=== PATIENT | male | born 1950 | race Caucasian/White ===

== ENCOUNTER 2020-02-20 05:48 | Inpatient (IN) | payer MEDICARE, OTHER ==
[2020-02-16 12:46] LABS: BASOPHILS % (AUTO) 0.4 % (0-1); EOSINOPHILS # (AUTO) 0.1 X10'3 (0-0.9); EOSINOPHILS % (AUTO) 1.2 % (0-6); LYMPHOCYTES # (AUTO) 1.6 X10'3 (1.1-4.8); LYMPHOCYTES % (AUTO) 20.5 % (21-51); MEAN CORPUSCULAR HEMOGLOBIN 29.8 PG (27.0-31.0); MEAN CORPUSCULAR HGB CONC 33.4 g/dL (33.0-36.5); MEAN PLATELET VOLUME 8.7 FL (7.4-10.4); MONOCYTES # (AUTO) 0.5 X10'3 (0-0.9); MONOCYTES % (AUTO) 5.7 % (2-12); NEUTROPHILS # (AUTO) 5.8 X10'3 (1.8-7.7); NEUTROPHILS % (AUTO) 72.2 % (42-75); PRE OP HEMATOCRIT 44.1 % (42.0-52.0); PRE OP HEMOGLOBIN 14.7 g/dL (14.0-17.9); PRE OP PLATELET COUNT 242 X10'3 (140-440); RED BLOOD COUNT 4.95 X10'6 (4.70-6.10); RED CELL DISTRIBUTION WIDTH 13.9 % (11.5-14.5)
[2020-02-16 12:53] LABS: HEMOGLOBIN A1C 6.1 % (4.5-6.2)
[2020-02-16 13:03] LABS: PRE OP PROTIME 10.4 SECONDS (9.0-12.0)
[2020-02-16 13:07] LABS: ALBUMIN 4.3 G/DL (3.4-5.0); ALBUMIN/GLOBULIN RATIO 1.2 (1.1-1.5); ALKALINE PHOSPHATASE 114 IU/L (46-116); BLOOD UREA NITROGEN 22 MG/DL (7-18); BUN/CREATININE RATIO 13.8 (5.4-32.0); CALCIUM 9.3 MG/DL (8.5-10.1); CHLORIDE 107 MMOL/L (99-107); CREATININE 1.59 MG/DL (0.60-1.10); PRE OP ALT 32 U/L (30-65); PRE OP ANION GAP 10 (8-16); PRE OP AST 18 U/L (10-37); PRE OP BILIRUB, TOTAL 0.7 MG/DL (0.0-1.0); PRE OP GLUCOSE 123 MG/DL (70-104); PRE OP SODIUM 144 MMOL/L (135-145); TOTAL CARBON DIOXIDE 27.1 MMOL/L (24-32); TOTAL PROTEIN 7.8 G/DL (6.4-8.2); eGFR 43 ML/MIN
[2020-02-20] VITALS (23 sets, daily range): BP systolic 125–188; BP diastolic 63–101
[~2020-02-20] VITALS: Ht 190.5 cm; Wt 106.0 kg
[~2020-02-20 05:48] MED LIST: AMIO200T62 PO; ASPI-20 PO; ATEN100T6 PO; ATOR40TA PO; CLOP75TA15 PO; DICL-212 PO; DOCUMENT DATE & TIME OF BETA-BLOCKER PO ONE; FELO10TA PO; GABA300C PO; KRIL1CAP PO; LOSA100T57 PO; METF-436 PO; ceFAZolin 2gm in dextrose, iso 50 ML IV ONE; famotidine 20mg tablet PO ONE; ringers solution, lacted 1,000 ML IV SCH
[2020-02-20] MEDS ORDERED: nitroGLYCERIN-Tridil 50MG/D5W 250 ML IV PRN (06:05)
[2020-02-20] MEDS ORDERED: nitroPRUSSIDE in NS 100 ML IV PRN (06:30)
[2020-02-20] MEDS ORDERED: phenylephrine inj 50 MG in normal saline 250ml IV soln 245 ML IV PRN (06:40)
[2020-02-20] MEDS ORDERED: heparin 10,000 units/1 ML INJ ONE (06:42)
[2020-02-20] MEDS ORDERED: LIDOcaine 1% 30ml preserv. free vial ONE (06:44)
[2020-02-20] MEDS ORDERED: ceFAZolin 1000mg inj ONE (06:44)
[2020-02-20] MEDS ORDERED: atenolol 50mg tablet PO ONE (07:35)
[2020-02-20] MEDS ORDERED: fentaNYL /PF 50mcg/ml 5ml ampule ONE (07:42)
[2020-02-20] MEDS ORDERED: LIDOcaine 2% (20mg/ml) 5ml vial ONE ×2 (07:45→11:21)
[2020-02-20] MEDS ORDERED: rocuronium 10mg/ml inj IV ONE ×2 (07:45→11:20)
[2020-02-20] MEDS ORDERED: amiodarone 200mg tablet PO ONE (08:00)
[2020-02-20] MEDS ORDERED: ringers solution, lacted 1,000 ML IV SCH (08:15)
[2020-02-20] MEDS ORDERED: ondansetron/PF 4mg/2ml inj IV PRN ×2 (08:15→11:35)
[2020-02-20] MEDS ORDERED: HYDROmorphone inj. 0.5 MG/0.5 ML DISP.SYRIN IV PRN ×3 (08:15→11:35)
[2020-02-20] MEDS ORDERED: morphine 2 MG/ML inj. syringe IV PRN (08:15)
[2020-02-20] MEDS ORDERED: sevoflurane 250ml liquid IH ONE (08:50)
[2020-02-20] MEDS ORDERED: naloxone 0.4 mg/ml inj ONE (08:50)
--- NOTE | 2020-02-20 11:05 | NUR ---
Received from OR via ICU BED , accompanied by Anesthesiologist OREN and report given by Anesthesiolgist. PATIENT WITH 20G PIV IN LEFT UE RUNNING LR AT 100 WELL VINCE AND NIPRIDE. VSS AT THIS TIME. RIGHT NECK DRESSING IS CDI. JOJO MAINTAINING SUCTION WITH SEROSANGUENOUS DRAINAGE PRESENT. PUSH PULLS, CLIENT EVALUATOR, SMILE SYMMETRICAL AND TONGUE IS MIDLINE. SCDS ON, DENIES PAIN AT THIS TIME. Addendum: 02/20/20 at 1123 by Naveen Cuba RN, RN Amended: Links added.
[2020-02-20] MEDS ORDERED: hydrALAZINE 20mg/ml inj. IV ONE (11:08)
[2020-02-20] MEDS ORDERED: neostigmine methylsulfate 1 MG/ML 10ml vial ONE (11:21)
[2020-02-20] MEDS ORDERED: propofol inj 20 ML IV ONE (11:21)
[2020-02-20] MEDS ORDERED: glycopyrrolate 0.2mg/ml inj ONE (11:21)
[2020-02-20] MEDS ORDERED: ondansetron/PF 4mg/2ml inj ONE (11:21)
--- NOTE | 2020-02-20 11:29 | NUR ---
135 BLOOD GLUCOSE IN RR Addendum: 02/20/20 at 1130 by Naveen Cuba RN RN Amended: Links added.
[2020-02-20] MEDS ORDERED: HYDROcodone/acetaminophen 10/325mg tab PO PRN (11:35)
[2020-02-20] MEDS: potassium CL 20mEq in D5-1/2NS 1,000 ML IV SCH ×2 (11:35→21:26)
[2020-02-20] MEDS ORDERED: gabapentin 300mg capsule PO PRN (11:40)
[2020-02-20] MEDS ORDERED: non-formulary drug (Diclofenac Sodium 1 TAB) PO PRN (11:40)
[2020-02-20 11:41] LABS: PARTIAL THROMBOPLASTIN TIME > 139 SECONDS (22-32)
--- NOTE | 2020-02-20 12:05 | NUR ---
PATIENT TAKEN TO WITH ALL BELONGINGS AND HOOKED UP TO MONITORS IN ROOM AND REPORT GIVEN TO RN WHO HAS TAKEN OVER PATIENT CARE. BED LOW, CALL LIGHT IN REACH, VSS, DRESSINGS CDI. PATIENT WITH BLOODY DRAINAGE WITHIN JOJO- MAINTAINING SUCTION. NO DRAINAGE TO DRESSING. NEUROLOGICALLY STILL INTACT. VSS. SCDS ON, GREEN CATHETER REMOVED PER MD SALAMANCA ORDERS. DENIES PAIN. CARE TURNED OVER TO LIZZ. Addendum: 02/20/20 at 1215 by Naveen Cuba RN, RN Amended: Links added.
[2020-02-20] MEDS ORDERED: acetaminophen 1,000mg/100ml IV 100 ML IV ONE (14:45)
--- NOTE | 2020-02-20 15:00 | NUR ---
No void since transfer to unit. No urge to pee. No oral intake. Refused water; states painful to swallow. Bladder scanned: 16ml found. Will cont. to monitor.
--- NOTE | 2020-02-20 18:41 | NUR ---
Problems reprioritized. Patient report given, questions answered & plan of care reviewed with Mariam CLARKE.
--- NOTE | 2020-02-20 19:10 | NUR ---
Problems reprioritized. Patient report given, questions answered & plan of care reviewed with Katie CLARKE. Patient to be transferred to ACCE unit room 315. Patient's art line d/c'd per MD order.
--- NOTE | 2020-02-20 19:21 | NUR ---
Patient in [facility]. I have received report from ALE CLARKE and had the opportunity to ask questions and assume patient care. IF PICC RN IS NOT ABLE TO INSERT 2ND IV, PHARMACY NOTED THAT IV FLUIDS ARE NOT COMPATIBLE. WILL ALTERNATE ANCEF WITH K AND FLUIDS IF NEEDED. Addendum: 02/21/20 at 0454 by Katie Ivory RN MD AWARE OF HYPERTENSION, BRADYCARDIA. PATIENT IS STABLE, NO S/S OF DIZZYNESS, SYNCOPE, SOB. PATIENT ALERT AND ORIENTED, GOOD DISPOSITION, ANSWERING ALL QUESTIONS APPROPRIATELY. WILL CONTINUE TO MONITOR NEURO STATUS AND VS CHECKS FOR ABNORMAL RESULTS.
[2020-02-20] MEDS: ceFAZolin 1GM/D5W- ADD-VANTAGE 50 ML IV SCH (20:30)
[2020-02-20] MEDS ORDERED: losartan 50mg tablet PO SCH (21:00)
[2020-02-20] MEDS ORDERED: metFORMIN 500mg tablet PO SCH (21:00)
[2020-02-20] MEDS ORDERED: non-formulary drug (Atorvastatin Calcium* (Lipitor*) 1 TABLET) PO SCH (21:00)
[2020-02-20] MEDS ORDERED: atorvastatin 20mg tablet PO SCH (21:00)
[2020-02-20] MEDS ORDERED: non-formulary drug (Losartan Potassium 100 MG) PO SCH (21:00)
[2020-02-20] MEDS ORDERED: aspirin 325mg tablet PO SCH (21:00)
[2020-02-21] VITALS: BP 162/79
[2020-02-21] MEDS: ceFAZolin 1GM/D5W- ADD-VANTAGE 50 ML IV SCH (00:38)
[2020-02-21] MEDS: potassium CL 20mEq in D5-1/2NS 1,000 ML IV SCH ×2 (01:38→09:42)
[2020-02-21 02:00] VITALS: BP 169/91
[2020-02-21 05:49] LABS: BASOPHILS % (AUTO) 0.3 % (0-1); EOSINOPHILS # (AUTO) 0.1 X10'3 (0-0.9); EOSINOPHILS % (AUTO) 0.6 % (0-6); HEMATOCRIT 35.9 % (42.0-52.0); HEMOGLOBIN 12.1 g/dl (14.0-17.9); LYMPHOCYTES # (AUTO) 1.4 X10'3 (1.1-4.8); LYMPHOCYTES % (AUTO) 14.8 % (21-51); MEAN CORPUSCULAR HEMOGLOBIN 30.1 PG (27.0-31.0); MEAN CORPUSCULAR HGB CONC 33.8 g/dL (33.0-36.5); MEAN CORPUSCULAR VOLUME 89.1 FL (78-98); MEAN PLATELET VOLUME 8.3 FL (7.4-10.4); MONOCYTES # (AUTO) 0.8 X10'3 (0-0.9); MONOCYTES % (AUTO) 8.1 % (2-12); NEUTROPHILS # (AUTO) 7.1 X10'3 (1.8-7.7); NEUTROPHILS % (AUTO) 76.2 % (42-75); PLATELET COUNT 182 X10'3 (140-440); RED BLOOD COUNT 4.02 X10'6 (4.70-6.10); RED CELL DISTRIBUTION WIDTH 14.2 % (11.5-14.5); WHITE BLOOD COUNT 9.4 X10'3 (4.5-11.0)
--- NOTE | 2020-02-21 06:11 | NUR ---
Problems reprioritized. Patient report given, questions answered & plan of care reviewed with ALE CLARKE.
--- NOTE | 2020-02-21 06:30 | NUR ---
Patient in room MED 315. I have received report from Katie Mays and had the opportunity to ask questions and assume patient care.
[2020-02-21] MEDS ORDERED: non-formulary drug (Krill/Om3/Dha/Epa/Om6/Lip/Astx (Krill Oil 1,000 Mg Softgel) 1 EACH) PO SCH (08:00)
[2020-02-21] MEDS ORDERED: atenolol 50mg tablet PO SCH (08:00)
[2020-02-21] MEDS ORDERED: ATENOLOL PO SCH (08:00)
[2020-02-21] MEDS ORDERED: amiodarone 200mg tablet PO SCH (08:00)
[2020-02-21] MEDS ORDERED: amLODIPine 5mg tablet PO SCH (08:00)
[2020-02-21] MEDS ORDERED: clopidogrel 75mg tablet PO SCH (08:00)
[2020-02-21] MEDS ORDERED: FELODIPINE PO SCH (08:00)
--- NOTE | 2020-02-21 09:15 | NUR ---
Pt was getting up for ambulation and nurse found an Atenolol. Since pt has high BP today puled one atenolol out of Omni cell to replace.
--- NOTE | 2020-02-21 09:47 | NUR ---
DR. SALAMANCA CALLED, UPDATE GIVEN - MINIMAL OUTPT FROM JOJO DRAIN <25mL SINCE SURGERY. NEW ORDER RECEIVED: REMOVE JOJO DRAIN. INFORMED HE WILL ROUND AFTER LUNCH WITH ANTICIPATION OF DISCHARGE HOME.
[2020-02-21 10:00] VITALS: BP 193/97
--- NOTE | 2020-02-21 11:00 | NUR ---
JOJO Drain removed from R neck per order, it had no drainage thus far and minimal on NOC shift. PT tolerated well. Site had no s/s of complications. Pressure type dressing applied over it.
[2020-02-21] MEDS ORDERED: ondansetron 4mg rapidly disintigrating tab PO PRN (11:25)
--- NOTE | 2020-02-21 12:30 | NUR ---
this RN agrees with the questions on assessment that Student Nurse Shaheen did.
[2020-02-21 15:00] VITALS: BP 172/87
--- NOTE | 2020-02-21 17:10 | NUR ---
Pt has remained stable. Discharge orders given by . Discharge instructions gine to pt and he stated understanding. IV D/C ed No s/s of complications noted. All belongings accounted for. Pt taken via wheelchair to private vehicle.
--- NOTE | 2020-02-24 12:13 | NUR ---
Case Management DC follow up: Spoke w/pt via telephone. s/p: R endarterectomy. Pt Reports:"doing pretty good" Denies: Acute/continuous CP, emergent SOB, resp distress, orthopnea, dyspnea, N/V, hematemesis, weakness, vertigo, syncope episodes, orthostatic hypotension, LOVE, blurry vision, s/s stroke/FAST, dysphagia, bladder pain, dysuria, polyuria, hematuria, retention, abd pain/distention, hematochezia, melena, unexplained bruising, bleeding, fever, chills. Denies pain, s/s infection to surg site, dsg CDI per pt. Verbalizes understanding of Rx, why prescribed; continues/resumes current Rx as ordered, denies ase r/t polypharmacy. Verbalizes compliance w/aftercare. Verbalizes understanding of s/s that warrant -11/ER visit for further evaluation. Pt acknowledges need to schedule/confirm/keep follow up appt w/PCP/Stefanie DISLA in March. [place] 02/25/20 1130. Needs met, questions/concerns addressed at DC; No further questions/concerns r/t recent hospital stay and/or DC status at this time.
== END 2020-02-21 17:30 | disposition home or self-care (01) | DRG 39 ==
LOC: UNDOADMIN 05:48 → PAS IN 05:48 → CICU 2S 12:32 → EDSTATUS 13:30 → CICU 2S 20:23 → MED 3N 20:23
PROVIDERS: ADMIT Surgery; ATTEND Surgery
PROC: 03UK0KZ Supplement Right Internal Carotid Artery with Nonautologous Tissue Substitute, Open Approach (ICD-10-PCS; 2020-02-20)
PROC: 03CK0ZZ Extirpation of Matter from Right Internal Carotid Artery, Open Approach (ICD-10-PCS; principal; 2020-02-20 08:50)
DX: I65.21 Occlusion and stenosis of right carotid artery (principal)
CPT/HCPCS: 36415; 71046; 80053; 82948; 83036; 85025; 85610; 85730; 86885; 86900; 86901; 87081; 87635; 88304; 88305; 93005; 95813; 95816; A4618; A6258; A6449; A7000; C1758; C1768; C1887; G0378; J0131; J0360; J0690; J1170; J1644; J2001; J2310; J2370; J2405; J2704; J2710; J3010; J3480; J3490; J7040; J7050; J7120